=== PATIENT | female | born 1965 | race Caucasian/White ===

== ENCOUNTER 2019-10-21 07:44 | Outpatient (CLI) | payer BC, SELFPAY ==
[2019-10-21 08:06] LABS: Basophils Absolute Auto 0.02 K/mm3 (0.00-0.10); Basophils Percent Auto 0.4 % (0.0-1.0); Eosinophils Absolute Auto 0.09 K/mm3 (0.02-0.50); Eosinophils Percent Auto 1.7 % (1.0-6.0); Hematocrit 40.4 % (35.0-49.0); Hemoglobin 13.9 g/dL (12.0-15.0); Immature Granulocyte Absolute 0.01 K/mm3 (0.00-0.00); Immature Granulocyte Percent A 0.2 % (0.0-0.0); Lymphocytes Absolute Auto 0.94 K/mm3 (1.10-4.50); Lymphocytes Percent Auto 17.4 % (18.0-42.0); Mean Corpuscular HGB Conc 34.4 g/dL (32.0-36.0); Mean Corpuscular Volume 87.3 fL (78.0-102.0); Mean Platelet Volume 10.3 fl (9.2-11.8); Monocytes Absolute Auto 0.45 K/mm3 (0.10-0.90); Monocytes Percent Auto 8.3 % (2.0-11.0); Neutrophils Absolute Auto 3.9 K/mm3 (1.7-7.2); Platelet Count Result 204 K/mm3 (150-420); Red Blood Count 4.63 M/mm3 (4.20-5.40); Red Cell Distribution Width 13.2 % (11.6-14.4); White Blood Count 5.4 K/mm3 (4.8-10.8)
[2019-10-21 09:19] LABS: Alanine Aminotransferase 20 U/L (14-59); Albumin Level 3.8 g/dL (3.4-5.0); Alkaline Phosphatase 93 U/L (46-116); Anion Gap 18.2 mmol/L (7-16); Aspartate Amino Transferase 15 U/L (15-37); Bilirubin,Total 0.6 mg/dL (0.00-1.00); Blood Urea Nitrogen 19 mg/dL (7-18); Carbon Dioxide 27 mmol/L (21-32); Chloride 102 mmol/L (98-108); Cholesterol 190 mg/dL (0-200); Estimated Glomerular Filt Rate > 60; Glucose 106 mg/dL (70-99); HDL Direct 54 mg/dL (40-60); LDL Cholesterol Calculated 99 mg/dL (<130); Osmolality Calculated 300 mOsm/kg (285-295); Potassium 3.2 mmol/L (3.5-5.1); Sodium 144 mmol/L (136-145); Total Protein 7.1 g/dL (6.4-8.2); Triglycerides 184 mg/dL (0-150)
[2019-10-21 09:36] LABS: Calcium 9.1 mg/dL (8.5-10.1)
== END 2019-10-21 07:45 | disposition home or self-care (01) ==
LOC: CHSLAB 07:51
PROVIDERS: PCP Nurse Practitioner Family; Visit Provider Nurse Practitioner Family
DX: I10 Essential (primary) hypertension (principal); E78.5 Hyperlipidemia, unspecified
CPT/HCPCS: 36415; 80053; 80061; 85025

== ENCOUNTER 2020-03-26 08:21 | Outpatient (CLI) | payer BC, SELFPAY ==
--- NOTE | ~2020-03-26 | XR_ITS ---
XR elbow RT 2V DATE: 03/26/2020 09:00 INDICATION: Lateral elbow pain for 3 months. No injury. TECHNIQUE: 4 views COMPARISON: None FINDINGS: No fracture or dislocation or joint effusion. No periosteal reaction or bone destruction. Joint spaces are preserved. IMPRESSION: Negative Reviewed, dictated and finalized at location A. IMPRESSION: Negative
[2020-03-26 09:04] LABS: Anion Gap 10.8 mmol/L (7-16); Blood Urea Nitrogen 19 mg/dL (7-18); Calcium 8.8 mg/dL (8.5-10.1); Carbon Dioxide 32 mmol/L (21-32); Chloride 103 mmol/L (98-108); Estimated Glomerular Filt Rate 57; Glucose 110 mg/dL (70-99); Osmolality Calculated 297 mOsm/kg (285-295); Potassium 3.8 mmol/L (3.5-5.1); Sodium 142 mmol/L (136-145)
== END 2020-03-26 08:22 | disposition home or self-care (01) ==
LOC: CHSLAB 08:26
PROVIDERS: PCP Nurse Practitioner Family; Visit Provider Nurse Practitioner Family
DX: M79.601 Pain in right arm (principal); E87.6 Hypokalemia
CPT/HCPCS: 36415; 73070; 80048

== ENCOUNTER 2020-04-02 14:50 | Outpatient (RCR) | payer BC, SELFPAY ==
--- NOTE | 2020-04-02 15:22 | PTOPEVAL ---
Thank you for referring Rhys Palacio to [facility]. Please review, sign, date and return this plan of care PINKY. I agree with and certify that the following plan of care is medically necessary. Referring Physician Date Admitting Provider: Attending Provider: Marisela Perez NP Referring Provider: BENJAMÍN Outpatient Evaluation Start: 04/02/20 14:56 Freq: Status: Active Protocol: Document 04/02/20 14:56 JTF (Rec: 04/02/20 15:21 J [id number]) Therapy Assessment Status Assessment Status Assessment Status Evaluation Evaluation Information Problem Diagnosis R arm pain Onset 01/10/20 Additional Evaluation Detail quick dash = 47% functionally declined Subjective Information patient reports she has been Query Text:As Reported By Patient/ having pain in her R forearm Family for about 2 months. she reports she was painting and injured her R forearm. she reports she was stretching far and felt a pull in her arm. she reports she initially was healed with medications, but has since had a flare up of pain in the R forearm since her anti-inflamatories wore off. she reports it will hurt along the forearm and into the back of the R hand. she reports the pain will run from the forearm to between to the 2nd and 3rd finger. she reports it will feel like it stiffens up on her. Prior Level of Function Comments Additional Prior Level of Function prior to painting, no issues. Comments Pain Assessment Timing of Pain Assessment Timing of Pain Assessment Assessment Pain Scale Pain Scale Used Numeric (1 - 10) Self Report Pain Assessment Right Arm(s) Reported Pain Level 2 Pain Description Aching,Sharp,Stabbing Lowest Pain Intensity 0 Greatest Pain Intensity 8 Pain Score Pain Score 2: Self Report Upper Extremity Range of Motion Scapular/ Shoulder Range of Motion Bilateral Reason Not Measured WFL/Left,WFL/Right Shoulder Medial Rotation - Active reach to the lower thoracic Query Text:Reach Behind the Back spine Shoulder Lateral Rotation - Active reach to the upper thoracic Query Text:Reach Behind the Head spine Elbow/Forearm Range of Motion Right
== END 2020-04-28 09:55 | disposition home or self-care (01) ==
LOC: CHSPT 14:50
PROVIDERS: PCP Nurse Practitioner Family; Visit Provider Nurse Practitioner Family
DX: M79.601 Pain in right arm (principal)
CPT/HCPCS: 97014; 97110; 97140; 97161; G0283

== ENCOUNTER 2020-11-03 08:21 | Outpatient (CLI) | payer BC, SELFPAY ==
[2020-11-03 08:40] LABS: Basophils Absolute Auto 0.02 K/mm3 (0.00-0.10); Basophils Percent Auto 0.3 % (0.0-1.0); Eosinophils Absolute Auto 0.12 K/mm3 (0.02-0.50); Eosinophils Percent Auto 1.8 % (1.0-6.0); Hematocrit 42.2 % (35.0-49.0); Hemoglobin 14.1 g/dL (12.0-15.0); Immature Granulocyte Absolute 0.02 K/mm3 (0.00-0.00); Immature Granulocyte Percent A 0.3 % (0.0-0.0); Lymphocytes Absolute Auto 1.37 K/mm3 (1.10-4.50); Lymphocytes Percent Auto 20.8 % (18.0-42.0); Mean Corpuscular HGB Conc 33.4 g/dL (32.0-36.0); Mean Corpuscular Hemoglobin 29.4 pg (27.0-31.0); Mean Corpuscular Volume 87.9 fL (78.0-102.0); Mean Platelet Volume 10.2 fl (9.2-11.8); Monocytes Absolute Auto 0.52 K/mm3 (0.10-0.90); Monocytes Percent Auto 7.9 % (2.0-11.0); Neutrophils Absolute Auto 4.6 K/mm3 (1.7-7.2); Neutrophils Percent Auto 68.9 % (50.0-70.0); Platelet Count Result 246 K/mm3 (150-420); Red Cell Distribution Width 13.1 % (11.6-14.4); White Blood Count 6.6 K/mm3 (4.8-10.8)
[2020-11-03 09:29] LABS: Alanine Aminotransferase 23 U/L (14-59); Albumin Level 3.9 g/dL (3.4-5.0); Alkaline Phosphatase 84 U/L (46-116); Anion Gap 12 mmol/L (8-16); Aspartate Amino Transferase 12 U/L (15-37); Bilirubin,Total 0.5 mg/dL (0.00-1.00); Blood Urea Nitrogen 19 mg/dL (7-18); Calcium 9.3 mg/dL (8.5-10.1); Carbon Dioxide 29 mmol/L (21-32); Chloride 100 mmol/L (98-108); Cholesterol 194 mg/dL (0-200); Estimated Glomerular Filt Rate 55; Glucose 122 mg/dL (70-99); HDL Direct 50 mg/dL (40-60); LDL Cholesterol Calculated 108 mg/dL (<130); Osmolality Calculated 295 mOsm/kg (285-295); Potassium 3.4 mmol/L (3.5-5.1); Sodium 141 mmol/L (136-145); Total Protein 7.2 g/dL (6.4-8.2); Triglycerides 178 mg/dL (0-150)
[2020-11-03 13:04] LABS: Hemoglobin A1C 5.9 % (<5.7)
== END 2020-11-03 08:22 | disposition home or self-care (01) ==
PROVIDERS: PCP Nurse Practitioner Family; Visit Provider Nurse Practitioner Family
DX: E78.5 Hyperlipidemia, unspecified (principal); I10 Essential (primary) hypertension; R73.09 Other abnormal glucose
CPT/HCPCS: 36415; 80053; 80061; 83036; 85025

== ENCOUNTER 2022-03-23 07:36 | Outpatient (CLI) | payer BC, SELFPAY ==
[2022-03-23 07:50] LABS: Basophils Absolute Auto 0.04 K/mm3 (0.00-0.10); Basophils Percent Auto 0.7 % (0.0-1.0); Eosinophils Absolute Auto 0.15 K/mm3 (0.02-0.50); Eosinophils Percent Auto 2.6 % (1.0-6.0); Hemoglobin 13.4 g/dL (12.0-15.0); Immature Granulocyte Absolute 0.03 K/mm3 (0.00-0.00); Immature Granulocyte Percent A 0.5 % (0.0-0.0); Lymphocytes Absolute Auto 1.34 K/mm3 (1.10-4.50); Lymphocytes Percent Auto 23.3 % (18.0-42.0); Mean Corpuscular HGB Conc 32.7 g/dL (32.0-36.0); Mean Corpuscular Hemoglobin 29.4 pg (27.0-31.0); Mean Corpuscular Volume 89.9 fL (78.0-102.0); Mean Platelet Volume 10.5 fl (9.2-11.8); Monocytes Absolute Auto 0.51 K/mm3 (0.10-0.90); Monocytes Percent Auto 8.9 % (2.0-11.0); Neutrophils Absolute Auto 3.7 K/mm3 (1.7-7.2); Platelet Count Result 243 K/mm3 (150-420); Red Blood Count 4.56 M/mm3 (4.20-5.40); Red Cell Distribution Width 13.2 % (11.6-14.4); White Blood Count 5.8 K/mm3 (4.8-10.8)
[2022-03-23 08:03] LABS: Alanine Aminotransferase 20 U/L (14-59); Albumin Level 3.5 g/dL (3.4-5.0); Alkaline Phosphatase 86 U/L (46-116); Anion Gap 5 mmol/L (8-16); Aspartate Amino Transferase 14 U/L (15-37); Bilirubin,Total 0.4 mg/dL (0.00-1.00); Blood Urea Nitrogen 16 mg/dL (7-18); Calcium 8.6 mg/dL (8.5-10.1); Carbon Dioxide 31 mmol/L (21-32); Chloride 103 mmol/L (98-108); Cholesterol 181 mg/dL (0-200); Estimated Glomerular Filt Rate > 60; Glucose 122 mg/dL (70-99); HDL Direct 49 mg/dL (40-60); LDL Cholesterol Calculated 93 mg/dL (<130); Osmolality Calculated 290 mOsm/kg (285-295); Potassium 3.3 mmol/L (3.5-5.1); Sodium 139 mmol/L (136-145); Triglycerides 195 mg/dL (0-150)
== END 2022-03-23 07:37 | disposition home or self-care (01) ==
LOC: CHSLAB 07:39
PROVIDERS: PCP Nurse Practitioner Family; Visit Provider Nurse Practitioner Family
DX: E78.5 Hyperlipidemia, unspecified (principal); I10 Essential (primary) hypertension
CPT/HCPCS: 36415; 80053; 80061; 85025

== ENCOUNTER 2023-01-31 07:19 | Outpatient (CLI) | payer BC, SELFPAY ==
[2023-01-31 07:31] LABS: Appearance Urine Clear (Clear); Bilirubin Urine Negative (Negative); Blood Urine Negative (Negative); Color Urine Yellow (Yellow); Glucose Urine UA Negative (Negative); Ketones Urine Negative (Negative); Leukocyte Esterase Ur Negative LEU/UL (Negative); Nitrate Urine Negative (Negative); Protein Urine Negative (Negative); Specific Grav Ur 1.015 (1.010-1.020); Urobilinogen Urine 0.2 mg/dL (0.2-1.0)
[2023-01-31 07:36] LABS: Add Urine Microscopic? NO
== END 2023-01-31 07:20 | disposition home or self-care (01) ==
LOC: CHSLAB 07:22
PROVIDERS: PCP Nurse Practitioner Family; Visit Provider Nurse Practitioner Family
DX: R39.9 Unspecified symptoms and signs involving the genitourinary system (principal)
CPT/HCPCS: 81003

== ENCOUNTER 2023-05-09 07:03 | Outpatient (CLI) | payer BC, SELFPAY ==
[2023-05-09 07:15] LABS: Basophils Absolute Auto 0.04 K/mm3 (0.00-0.10); Basophils Percent Auto 0.6 % (0.0-1.0); Eosinophils Absolute Auto 0.15 K/mm3 (0.02-0.50); Eosinophils Percent Auto 2.4 % (1.0-6.0); Hematocrit 40.4 % (35.0-49.0); Hemoglobin 13.3 g/dL (12.0-15.0); Immature Granulocyte Absolute 0.03 K/mm3 (0.00-0.00); Immature Granulocyte Percent A 0.5 % (0.0-0.0); Lymphocytes Absolute Auto 1.51 K/mm3 (1.10-4.50); Mean Corpuscular HGB Conc 32.9 g/dL (32.0-36.0); Mean Corpuscular Hemoglobin 29.4 pg (27.0-31.0); Mean Corpuscular Volume 89.2 fL (78.0-102.0); Mean Platelet Volume 10.1 fl (9.2-11.8); Monocytes Percent Auto 7.9 % (2.0-11.0); Neutrophils Absolute Auto 4.1 K/mm3 (1.7-7.2); Neutrophils Percent Auto 64.6 % (50.0-70.0); Platelet Count Result 221 K/mm3 (150-420); Red Blood Count 4.53 M/mm3 (4.20-5.40); Red Cell Distribution Width 13.5 % (11.6-14.4); White Blood Count 6.3 K/mm3 (4.8-10.8)
[2023-05-09 08:11] LABS: Anion Gap 9 mmol/L (8-16); Carbon Dioxide 32 mmol/L (21-32); Chloride 102 mmol/L (98-108); Potassium 3.4 mmol/L (3.5-5.1); Sodium 143 mmol/L (136-145)
[2023-05-09 08:12] LABS: Alanine Aminotransferase 15 U/L (14-59); Albumin Level 3.7 g/dL (3.4-5.0); Alkaline Phosphatase 88 U/L (46-116); Aspartate Amino Transferase 14 U/L (15-37); Bilirubin,Total 0.4 mg/dL (0.00-1.00); Blood Urea Nitrogen 22 mg/dL (7-18); Calcium 9.5 mg/dL (8.5-10.1); Cholesterol 184 mg/dL (0-200); Estimated Glomerular Filt Rate 59; Glucose 110 mg/dL (70-99); HDL Direct 46 mg/dL (40-60); LDL Cholesterol Calculated 111 mg/dL (<130); Osmolality Calculated 300 mOsm/kg (285-295); Total Protein 6.9 g/dL (6.4-8.2); Triglycerides 137 mg/dL (0-150)
== END 2023-05-09 07:04 | disposition home or self-care (01) ==
LOC: CHSLAB 07:06
PROVIDERS: PCP Nurse Practitioner Family; Visit Provider Nurse Practitioner Family
DX: E78.5 Hyperlipidemia, unspecified (principal); I10 Essential (primary) hypertension
CPT/HCPCS: 36415; 80053; 80061; 85025

== ENCOUNTER 2023-10-27 09:32 | Outpatient (CLI) | payer BC, SELFPAY ==
--- NOTE | ~2023-10-27 | XR_ITS ---
Left wrist Technique: PA, oblique, lateral, and ulnar deviation views were obtained. Clinical History: Pain Findings: No acute fracture or dislocation is seen. Osseous alignment is anatomic. Joint spaces are p reserved. Soft tissues are unremarkable. Impression: Unremarkable left wrist radiographs. Reviewed, dictated and finalized at location . 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
--- NOTE | ~2023-10-27 | XR_ITS ---
Left Hand Technique: PA, oblique, and lateral views were obtained. Clinical History: Injury Findings: No acute fracture or dislocation is seen. Osseous alignment is anatomic. Joint spaces are p reserved. Soft tissues are unremarkable. Impression: Unremarkable left hand. Reviewed, dictated and finalized at location M. PUNCHER Impression: Unremarkable left hand.
== END 2023-10-27 09:33 | disposition home or self-care (01) ==
LOC: CHSIMG 09:36
PROVIDERS: PCP Nurse Practitioner Family; Visit Provider Nurse Practitioner Family
DX: S69.92XA Unspecified injury of left wrist, hand and finger(s), initial encounter (principal)
CPT/HCPCS: 73110; 73130

== ENCOUNTER 2023-11-18 08:54 | Outpatient (CLI) | payer BC, SELFPAY ==
--- NOTE | ~2023-11-18 | MR_ITS ---
EXAMINATION: MR wrist LT wo con DATE: 11/18/2023 13:02 INDICATION: Unspecified injury of left wrist and hand. TECHNIQUE: Magnetic resonance imaging (MRI) of the wrist was performed without intravenous contrast. Sequences performed include coronal T1-weighted FSE, coronal PD-weighted FS FSE, axial PD-weighted FS FSE, axial PD-weighted FSE, sagittal PD-weighted FSE, and sagittal PD-weighted FS FSE. COMPARISON: Left wrist and hand radiographs 10/27/2023 FINDINGS: Intrinsic ligaments: Scapholunate ligament and lunotriquetral ligament are normal. Triangular fibrocartilage complex (TFCC): There is a full-thickness tear of triangular fibrocartilage. Extensor wrist: The extensor tendons are normal. Flexor wrist: The flexor tendons are normal. Median nerve is normal. Guyon's canal: Ulnar nerve is normal. Bones/other: There is mild osteoarthritis of triscaphe joint and first carpometacarpal joint. IMPRESSION: 1. 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 2. Full-thickness tear of triangular fibrocartilage. Reviewed, dictated and finalized at location E. 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
== END 2023-11-18 08:55 | disposition home or self-care (01) ==
PROVIDERS: PCP Nurse Practitioner Family; Visit Provider Nurse Practitioner Family
DX: S69.92XA Unspecified injury of left wrist, hand and finger(s), initial encounter (principal); M19.032 Primary osteoarthritis, left wrist; S63.592A Other specified sprain of left wrist, initial encounter; M25.532 Pain in left wrist
CPT/HCPCS: 73221

== ENCOUNTER 2023-11-28 10:59 | Outpatient (RCR) | payer BC, SELFPAY ==
--- NOTE | 2023-12-01 16:55 | BUOTOPEVAL ---
Assessment and note entered by Dyana Leiva OT Evaluation Information Assessment Status Evaluation Diagnosis Unspecified injury of L wrist, hand and finger Onset 10/17/2023 Subjective Information The patient reports 0/10 pain at evaluation and 8/ 10 pain at worst. The patient has pain during any use of wrist, the patient has pain at all times but can perform ADLs/IADLs. 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 Pain is located at palmar side of hand at base of wrist. The patient has no sensation issues. The patient reports soreness in L shoulder during MMT. Reported Pain Level Pain Score 0: Self Report Assessment OT Clinical Summary The patient is a 58 year old female who was referred to outpatient OT due to L wrist TFCC tear resulting in pain and limited ability to perform daily tasks. 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 The patient now demonstrates moderate pain in L wrist, minimally impaired AROM and strength of wrist and forestry instructor/pinch strength that affect the patient's ability to perform ADLs and IADLs without pain. The patient requires skilled OT to address AROM and strength of L wrist, L forestry instructor strength and pain in order to return to OF. Plan of Care Interventions Therapeutic Exercise,Manual Therapy,Neuro Re- education,Therapeutic Activities,Hot Pack/Cold Pack,Electrical Stimulation,Sensory Integrative Techn,Self-Care/Home Management,Prosthetic Training,Ultrasound OT Services Indicated Yes Treatment Frequency and 2x/week for 10 visits. Duration These treatments will address the objective and functional deficits as defined above. The patient will be advanced safely and appropriately in order for the patient to progress towards his/her prior level of function. Additional exercises will be introduced and as well as a comprehensive home exercise program upon discharge, if needed, ?to ensure carryover of functional gains achieved in the clinic. This treatment plan has been reviewed and agreement upon by the patient.
--- NOTE | 2023-12-27 13:42 | OTOPDC ---
Assessment and note entered by Dyana Leiva, OT Evaluation Information Assessment Status Discharge Subjective Information The patient stated that she is able to do her ADLs without pain and does not have to think about her wrist anymore. The patient reported that she cleaned house all day yesterday with no issues. She reports that she does her exercises at home and is going to continue after discharge. 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 The patient demonstrates significant progress toward goals with no signs of pain during activity. She has improved on QuickDASH from 29.5% to 2.3% at the time of discharge. Due to the patient's good progress and understanding of HEP, the patient is discharged this date due to meeting goals. Plan of Care OT Services Indicated No
== END 2023-12-27 16:07 | disposition home or self-care (01) ==
LOC: CHSOT 10:59
PROVIDERS: Visit Provider Nurse Practitioner Family
DX: M25.532 Pain in left wrist (principal); S69.92XD Unspecified injury of left wrist, hand and finger(s), subsequent encounter
CPT/HCPCS: 97110; 97140; 97165; 97530

== ENCOUNTER 2024-06-10 09:37 | Outpatient (CLI) | payer BC, SELFPAY ==
--- NOTE | ~2024-06-10 | XR_ITS ---
XR foot RT min 3V Ordering provider: Marisela Perez NP History: . Lateral pain X 3 weeks/surgery 2018, ankle fx/surgery - 2008 . Comparison: July 02, 2013 FINDINGS: BONES: Old fracture in the base of the fifth metatarsal bone unchanged. No acute fracture or dislocat ion. Calcaneal spur. Postoperative changes in the distal fibula JOINT SPACES: Normal. No tarsal coalition. SOFT TISSUES: Normal. IMPRESSION: No acute osseous abnormality of the right foot. Of the fracture in the base of the fifth metatarsal bone. Reviewed, dictated and finalized at location A.
== END 2024-06-10 09:38 | disposition home or self-care (01) ==
PROVIDERS: PCP Nurse Practitioner Family; Visit Provider Nurse Practitioner Family
DX: M79.671 Pain in right foot (principal)
CPT/HCPCS: 73630

== ENCOUNTER 2024-07-19 10:12 | Outpatient (CLI) | payer BC, SELFPAY ==
[2024-07-19 10:49] LABS: Basophils Absolute Auto 0.03 K/mm3 (0.00-0.10); Basophils Percent Auto 0.5 % (0.0-1.0); Eosinophils Absolute Auto 0.15 K/mm3 (0.02-0.50); Eosinophils Percent Auto 2.7 % (1.0-6.0); Hemoglobin 14.2 g/dL (12.0-15.0); Immature Granulocyte Absolute 0.01 K/mm3 (0.00-0.00); Immature Granulocyte Percent A 0.2 % (0.0-0.0); Lymphocytes Absolute Auto 1.38 K/mm3 (1.10-4.50); Mean Corpuscular HGB Conc 33.8 g/dL (32-36); Mean Corpuscular Hemoglobin 29.9 pg (27.0-31.0); Mean Corpuscular Volume 88.4 fL (78.0-102.0); Monocytes Absolute Auto 0.42 K/mm3 (0.10-0.90); Monocytes Percent Auto 7.6 % (2.0-11.0); Neutrophils Absolute Auto 3.53 K/mm3 (1.70-7.20); Platelet Count Result 245 K/mm3 (150-420); Red Blood Count 4.75 M/mm3 (4.20-5.40); Red Cell Distribution Width 12.8 % (11.6-14.4); White Blood Count 5.5 K/mm3 (4.8-10.8)
[2024-07-19 11:02] LABS: Prothrombin Time 10.6 Seconds (9.50-12.1)
[2024-07-19 11:43] LABS: Alanine Aminotransferase 29 U/L (14-59); Albumin Level 3.7 g/dL (3.4-5.0); Alkaline Phosphatase 82 U/L (46-116); Anion Gap 11 mmol/L (4-12); Aspartate Amino Transferase 15 U/L (15-37); Bilirubin,Total 0.6 mg/dL (0.00-1.00); Blood Urea Nitrogen 17 mg/dL (7-18); Calcium 9.9 mg/dL (8.5-10.1); Carbon Dioxide 30 mmol/L (21-32); Chloride 103 mmol/L (98-108); Cholesterol 210 mg/dL (0-200); Estimated Glomerular Filt Rate 60; Glucose 109 mg/dL (70-99); HDL Direct 61 mg/dL (40-60); LDL Cholesterol Calculated 117 mg/dL (<130); Osmolality Calculated 300 mOsm/kg (285-295); Sodium 144 mmol/L (136-145); Total Protein 7.1 g/dL (6.4-8.2); Triglycerides 161 mg/dL (0-150)
== END 2024-07-19 10:13 | disposition home or self-care (01) ==
LOC: CHSLAB 10:14
PROVIDERS: PCP Nurse Practitioner Family; Visit Provider Nurse Practitioner Family
DX: E78.5 Hyperlipidemia, unspecified (principal); R04.0 Epistaxis; I10 Essential (primary) hypertension
CPT/HCPCS: 36415; 80053; 80061; 85025; 85610

== ENCOUNTER 2024-11-18 08:13 | Outpatient (CLI) | payer BC, SELFPAY ==
--- NOTE | ~2024-11-18 | XR_ITS ---
EXAMINATION: XR foot RT min 3V DATE: 11/18/2024 08:49 INDICATION: Right fifth metatarsal pain. TECHNIQUE: 4 views of right foot with weightbearing were obtained. COMPARISON: Right foot radiographs 06/10/2024, 07/02/2018 FINDINGS: Alignment is normal. There is a nondisplaced avulsion fracture of base of fifth metatarsal with callus formation. There is plate-screw fixation of distal fibula. There is mild osteoarthritis o f first metatarsophalangeal joint and some of the interphalangeal joints and midfoot joints. There is an enthesophyte at plantar aspect of calcaneal tuberosity. IMPRESSION: 1. Healing nondisplaced avulsion fracture of base of fifth metatarsal. 2. Mild polyarticular osteoarthritis. Reviewed, dictated and finalized at location B.
--- OUTSIDE RECORDS SUMMARY | 2024-11-18 08:29 | XMS_ITS | Clinical Summary ---
Author Organization [facility] Address [address] [place] [address] Care Team Providers Care Shank Sander Name Role Phone Marisela Perez [facility] Primary Care Provider [phone] Allergies No known active allergies Medications estrogens, conjugated, 0.3 MG tabletIndication s:hormone therapy Take 0.3 mg by mouth daily. Take daily for 21 days then do not take for 7 days. Active atenolol-chlorth alidone 50-25 MG TabIndications:I ncreased Blood Pressure Take 1 tablet by mouth daily. Active atorvastatin 20 MG tabletIndication s:Hypercholester olemia Take 20 mg by mouth daily. Active Multiple Vitamins-Mineral s (ONE-A-DAY WOMENS 50 PLUS OR)Indications:s upplement Take 1 tablet by mouth daily. Active calcium carb-cholecalcif terry 600-400 MG-UNIT Tab tabletIndication s:calcium 1200 + vitamin D3-supplement 1 tablet daily. Active Cholecalciferol (VITAMIN D3) 2000 units TabIndications:s upplement Take 1 tablet by mouth daily. Active fish oil 1000 MG Cap capsuleIndicatio ns:supplement Take 1,400 mg by mouth daily. Active Family History Relation Status Comments Father (Age 88) heart attack Mother (Age 82) heart diseaSE Social History Tobacco Use Types Packs/Day Years Used Date Smoking Tobacco: Never Smokeless Tobacco: Never Alcohol Use Standard Drinks/Week Comments Yes 0 (1 standard drink = 0.6 oz pur e alcohol) rare/socially Comments Unknown Sex and Gender Information Value Date Recorded Sex Assigned at Not on file Legal Sex Female 8:33 PM CDT Gender Identity Not on file Sexual Orientation Not on file Last Filed Vital Signs Vital Sign Reading Time Taken Comments Blood Pressure 95/81 10/04/2018 4:33 PM BEE BREEDER Pulse 56 10/04/2018 4:33 PM BEE BREEDER Temperature 16 C (60.8 F) 10/04/2018 4:00 PM BEE BREEDER Respiratory Rate 16 10/04/2018 4:33 PM BEE BREEDER Oxygen Saturation 94% 10/04/2018 4:33 PM BEE BREEDER Inhaled Oxygen Concentration - - Weight 97.1 kg (214 lb) 10/04/2018 10:58 AM BEE BREEDER Height 170.2 cm (5' 7 ) 10/04/2018 10:58 AM BEE BREEDER Body Mass Index 33.52 10/04/2018 10:58 AM BEE BREEDER Plan of Treatment Health Maintenance Due Date Last Done Comments Colorectal Cancer Screening Colonoscopy (10 Years) 1965 Annual Physical 1966 Hepatitis C 1981 DTaP, Tdap and Td Vaccines (1 - Tdap) 1982 Zoster Vaccines (1 of 2) 2013 COVID-19 Vaccine (3 - season) 2024 12/18/2020, 11/18/2020 Influenza Adult (#1) 2024 Mammogram Screening 07/05/2026 07/05/2024, 07/04/2023, 05/25/2022, Additional history exists RSV Immunization or 60+ Years (1 - 1-dose 75+ series) 2038 Meningococcal B Vaccine Aged Out No l onger eligible based on patient's age to complete this topic Meningococcal Vaccine Aged Out No trino zhou eligible based on patient's age to complete this topic Pneumococcal Vaccine: Pediatrics (0 to 5 Years) and At-Risk Patients (6 to 64 Years) Aged Out No longer eligible based on patient's age to complete this topic RSV Immunizations Under 20 Months Aged Out No longer eligible based on patient's age to complete this topic Procedures Procedure Name Priority Date/Time Associated Diagnosis Comments MG SCREENING W VANDA TRISH DIGI Routine 07/05/2024 2:34 PM CDT Visit for screening mammogram from Last 3 Months or Most Recently Relevant to Health Maintenance Results * MG SCREENING W VANDA TRISH DIGI (07/05/2024 2:34 PM CDT) Anatomical Region Laterality Modality Breast Bilateral Mammography 07/05/2024 4:57 PM CDT Impressions 07/05/2024 5:01 PM CDT ===== IMPRESSION: ===== 1. Stable mammographic appearance with no new findings to suggest malignancy in either breast. Assessment: ACR BI-RADS 2 - BENIGN FINDING(S) Recommendation: 1:Routine Screening Bilateral Comments: Ordered By: AMIRA BOONE Interpreted By: Christina Shay, 07/05/2024 4:57 PM Narrative 07/05/2024 5:01 PM CDT [facility] [place] [address] EXAMINATION: Digital bilateral screening mammogram with 3-D tomosynthesis EXAM DATE/TIME: 07/05/2024 2:15 PM REASON FOR EXAM: YEARLY EXAM Breast reduction in 2006. Benign right-sided biopsy in 2004 COMPARISON: 05/25/2022. 07/04/2023 Technique: Digital screening mammography of both breasts was performed in addition to 3-D Tomosynthesis technique. This study was read with the assistance of a computer-aided detection system. Tissue density: The breasts are heterogeneously dense, which may obscure small masses. Findings: There is no new focal asymmetry, dominant mass lesion, area of skin thickening, or cluster of suspicious appearing calcifications in either breast to suggest malignancy. us Amira Boone MD MAMMO Final Res ult from Last 3 Months or Most Recently Relevant to Health Maintenance Insurance [facility] [place] [employer] Care Teams Shank Sander Relationship Specialty Start Date End Date Marisela Perez FNP [address] [place] [address] PCP - General NURSE PRACTITIONER 04/14/20
--- OUTSIDE RECORDS SUMMARY | 2024-11-18 08:29 | XMS_ITS ---
Author Organization [facility] Address [address] [place], [place] [id number] Care Team Providers Care Concrete Rod Buster Name Role Phone Marisela Perez Unavailable Unavailable BENNIE ROJO Unavailable [phone] Allergies Allergen (clinical drug ingredient) Drug/Non Drug Allergy documented on EMR Reaction Allergy Type Onset Date Status Latex Latex Unknown Allergy Active REASON FOR VISIT *Foot Pain Medications Medication SIG (Take, Route, Fr equency, Duration) Notes Start Date End Date Status Lisinopril 10 MG 1 tablet Orally Once a day Active Atenolol 25 MG 1 tablet Orally Once a day Active Premarin 0.3 MG 1 tablet Orally Once a day Active Lipitor 10 MG 1 tablet Orally Once a day Active Chlorthalidone 25 MG 1 tablet in the mor desiree with food Orally Active Vital Signs Height 67 in 06/13/2024 Weight 213 lbs 06/13/2024 BMI 33.36 kg/m2 06/13/2024 Height-cm 170.18 cm 06/13/2024 Weight-kg 96.62 kg 06/13/2024 Encounters Encounter Location Date Provider Diagnosis [facility] [address] [place], [place] [id number] 06/13/2024 BENNIE ROJO Flat foot [pes planu s] (acquired), right foot M21.41 ; Localized edema R60.0 and Sprain of calcaneofibular ligament of right ankle, initial encounter S93.411A Assessments Encounter Date Diagnosis (ICD Code) Assessment Notes Treatment Notes Treatment Clinical Notes Section Notes 06/13/2024 Flat foot [pes planus] (acquired), right foot (ICD-10 - M21.41) Patient educated on etiology and treatment options for flexible flat foot deformity. Educated patient on how a flexible flat foot deformity can in turn result in pathology such as hammer toe, bunions, equinus, neuromas. Recommend use of custom foot inserts to help alleviate plantar peak pressures and accomodate for digital deformity to feet. 06/13/2024 Localized edema (ICD-10 - R60.0) 06/13/2024 Sprain of calcaneofibular ligament of right ankle, initial encounter (ICD-10 - S93.411A) Ankle Sprain: Discussed the treatment course for ankle sprain. Explained that ankle injuries may take a total of 6-12 weeks for recovery based on the severity of the sprain. Stressed the importance of rest, activity modification, and bracing. Plan Of Treatment Treatment Notes Assessment Notes Flat foot [pes planus] (acquired), right foot Patient educated on etiology and treatment options for flexible flat foot deformity. Educated patient on how a flexible flat foot deformity can in turn result in pathology such as hammer toe, bunions, equinus, neuromas. Recommend use of custom foot inserts to help alleviate plantar peak pressures and accomodate for digital deformity to feet. Sprain of calcaneofibular li gament of right ankle, initial encounter Ankle Sprain: Discussed the treatment course for ankle sprain. Explained that ankle injuries may take a total of 6-12 weeks for recovery based on the severity of the sprain. Stressed the importance of rest, activity modification, and bracing. Next Appt Details Follow Up: prn, Reason: Progress Notes * Vaibhav PALACIOSharanOB:[birth year] (59 yo F)Acc No.[id number]:06/13/2024 Progress Notes Patient: Rhys CHAHAL Provider: Ambar ROJO :1965 A ge:59 Y S ex:Female Date:06/13/2024 Address:[address], [facility] Subjective: * Chief Complaints: * 1 . *Foot Pain. * HPI: H PI: New Complaint P atient presents for a new patient consultation., Patient complains of an issue to right foot pain. Patient states that she went on a walk about a month ago and when she got done the foot was in pain. Patient states that she has had previous injuries to the foot. She got X-rays on Mondayand they showed an old fracture at the 5th metatarsal., MA: temi. * ROS: G eneral / Constitutional: Patient denies w eakness. R espiratory: Patient denies c hronic cough, shortness of breath, sputum production. C ardiovascular: Patient denies c hest pain, history of WI, irregular heartbeat. M usculoskeletal: Patient complains of f lat feet/ planus, joint pain. ? P eripheral Vascular: Patient denies b lanching of skin, cold extremities, decreased sensation in extremities. S kin: Patient denies f ungal nails, itching. N eurologic: Patient denies d izziness, gait abnormality, headache. * Medical History: H igh blood pressure. * Medications: T aking Chlorthalidone 25 MG Tablet 1 tablet in the morning with food Orally , Taking Atenolol 25 MG Tablet 1 tablet Orally Once a day , Taking Lisinopril 10 MG Tablet 1 tablet Orally Once a day , Taking Lipitor 10 MG Tablet 1 tablet Orally Once a day , Taking Premarin 0.3 MG Tablet 1 tablet Orally Once a day * Allergies: L atex: Allergy. Objective: * Vitals: S hoe Size: 11, Wt:213lbs, Wt-k.62 kg, Ht: 67 in, Ht-cm: 170.18 cm, BMI:33.36Index, Body Surface Area: 2.13. * Examination: P hysical Examination: V ascular: Dorsalis Pedis pulse noted at 2/4 right foot and 2/4 left foot and Posterior Tibial pulse noted at 2/4 right foot and 2/4 left foot, Capillary refill times noted to be less than three seconds x ten, Temperature gradient noted to be warm to cool to bilateral foot, pedal hair present to bilateral foot and no varicosities are noted Dermatologic: there are no open lesions, no signs of active clinical infection, no erythema noted, no ecchymoses, nails are at hygienic length during todays visit, interdigital spaces clean dry and intact Neurology: protective sensation intact to light touch bilateral digits one through five, vibratory sensation intact to first metatarsophalangeal joint bilaterally Musculoskeletal: pain to palpation medial calcaneal tubercle right foot, pain along medial band of plantar fascia right foot, ankle joint range of motion 0 degree with knee extended bilateral side, arch height 2/5 NWB bilateral 1/5 WB, no calf pain noted b/l, too many toes signs noted on weight bearing exam. Assessment: * Assessment: 1. F lat foot [pes planus] (acquired), right foot - M21.41 (Primary) 2 . L ocalized edema - R60.0 3 . S prain of calcaneofibular ligament of right ankle, initial encounter - S93.411A Plan: * Treatment: 2. S prain of calcaneofibular ligament of right ankle, initial encounter Notes: Ankle Sprain: Discussed the treatment course for ankle sprain. Explained that ankle injuries may take a total of 6-12 weeks for recovery based on the severity of the sprain. Stressed the importance of rest, activity modification, and bracing. * Follow Up: p rn * Billing Information: * Visit Code: 04384 Office Visit, New Pt., Level 3. * Procedure Codes: * Sign off status: Completed true * Provider: Ambar ROJO Date: Generated for Tee martinez/Saleem/Rodrigo on: 0 11/18/2024 08:29 AM CDT History and Physical Notes * HPI (History of Present Illness) Category Sub-Category Detail Notes Category Not es HPI New Complaint Patient presents for a new patient consultation., Patient complains of an issue to right foot pain. Patient states that she went on a walk about a month ago and when she got done the foot was in pain. Patient states that she has had previous injuries to the foot. She got X-rays on Mondayand they showed an old fracture at the 5th metatarsal., MA: [facility] Examination Category Sub-Category Detail Notes Category Not es Physical Examination Vascular: Dorsalis Pedis pulse noted at 2/4 right foot and 2/4 left foot and Posterior Tibial pulse noted at 2/4 right foot and 2/4 left foot, Capillary refill times noted to be less than three seconds x ten, Temperature gradient noted to be warm to cool to bilateral foot, pedal hair present to bilateral foot and no varicosities are noted Dermatologic: there are no open lesions, no signs of active clinical infection, no erythema noted, no ecchymoses, nails are at hygienic length during todays visit, interdigital spaces clean dry and intact Neurology: protective sensation intact to light touch bilateral digits one through five, vibratory sensation intact to first metatarsophalangeal joint bilaterally Musculoskeletal: pain to palpation medial calcaneal tubercle right foot, pain along medial band of plantar fascia right foot, ankle joint range of motion 0 degree with knee extended bilateral side, arch height 2/5 NWB bilateral 1/5 WB, no calf pain noted b/l, too many toes signs noted on weight bearing exam
--- OUTSIDE RECORDS SUMMARY | 2024-11-18 08:29 | XMS_ITS | Patient Health Record ---
Author Organization [facility] Address [address] [place], [place] [address] Care Team Providers Care Siding Mechanic Name Role Phone Marisela Perez Unavailable Unavailable BENNIE ROJO Unavailable [phone] Allergies Allergen (clinical drug ingredient) Drug/Non Drug Allergy documented on EMR Reaction Allergy Type Onset Date Status Latex Latex Unknown Allergy Active Reason For Referral No Information Medications Medication SIG (Take, Route, Fr equency, [...] desiree with food Orally Active Vital Signs Height-cm 170.18 cm 06/13/2024 Weight-kg 96.62 kg 06/13/2024 Height 67 in 06/13/2024 Weight 213 lbs 06/13/2024 BMI 33.36 kg/m2 06/13/2024 Encounters Encounter Location Date Provider Diagnosis [facility] [address] [place], [place] [id number] 06/13/2024 BENNIE ROJO Flat foot [pes planu [...] activity modification, and bracing. Plan Of Treatment No Information Insurance Providers Payer Name Payer Address Payer Phone Subscriber Number Group Number Insured Name Patient Relationship to Insured Coverage Start Date Coverage End Date [facility]) ATTN CLAIMS [address] [place] [address] [id number] Rhys Palacio Self - patient is the insured 9 [facility] ([facility]) ATTN CLAIMS [address] [place] [address] [id number] Rhys Palacio Self - patient is the insured Medical (General) History Medical History History ICD Code high blood pressure
== END 2024-11-18 08:14 | disposition home or self-care (01) ==
LOC: CHSIMG 08:15
PROVIDERS: PCP Nurse Practitioner Family; Visit Provider Orthopaedic Surgery
DX: M79.671 Pain in right foot (principal); S92.354D Nondisplaced fracture of fifth metatarsal bone, right foot, subsequent encounter for fracture with routine healing; M19.071 Primary osteoarthritis, right ankle and foot
CPT/HCPCS: 73630

== ENCOUNTER 2024-11-20 08:05 | Outpatient (RCR) | payer BC, SELFPAY ==
--- NOTE | 2024-11-20 09:01 | OPREHPOC ---
Outpatient Therapy Plan of Care This is a Multidisciplinary Plan of Care that may contain components documented by all disciplines (PT, OT, and ST.) PT Problem 1 PT Problem #1 Knowledge Deficit PT Goal 1 Goal / Goal Update Independent with HEP Target Visit 4 PT Problem 2 PT Problem #2 Pain PT Goal 1 Goal / Goal Update Pt to report 0/10 pain in the R ankle at rest. Pt to report no more than 4/10 pain in the R ankle when walking. Target Visit 8 PT Problem 3 PT Problem #3 Impaired Range of Motion PT Goal 1 Goal / Goal Update Pt to reach 20 degrees of active R ankle dorsiflexion. Target Visit 8 PT Problem 4 PT Problem #4 Impaired Functional Mobility PT Goal 1 Goal / Goal Update Pt to report no more than 5% disability on LEFS questionnaire. Pt to be able to stand and walk for more than 20 minutes without R ankle pain. Target Visit 8
--- NOTE | 2024-11-20 09:01 | PTOPEVAL1 ---
Assessment and note entered by Hanh Zhou, PT Evaluation Information Assessment Status Evaluation Diagnosis R peroneal tendinitis ICD-10 Condition Codes (PT) Pain in right ankle and joints of right foot M25. 571 Other ICD-10 Condition Codes ( M76.71 PT) Onset 05/12/25 Subjective Information Pt reports she's had two surgeries on her R ankle/ foot, the first in 2008 and the second in 2017. The first surgery was for fixation of a spiral fracture and the second one was to remove an avulsion from a 5th MT fracture. She reports she has a lot of scar tissue on the lateral side of her R foot as a result of these surgeries. She also notes occasional numbness into her pinky toe. She states she got a cortisone shot on Monday and that her pain is way better than it was. Prior to getting the shot, bearing any weight on the foot caused nearly 10/10 pain. Yesterday she was able to go outside and walk in her yard. Recent x-rays are clear for any new fractures. Reported Pain Level Pain Score 2: Self Report Assessment PT Clinical Summary Mrs. Palacio is a 59 yo female presenting to physical therapy with complaints of R foot/ankle pain. She demonstrates reduced R ankle AROM grossly compared to her L ankle due to her history of surgical fixation due to previous fractures, and she has palpable scar tissue along her incisions as well as occasional numbness into her pinky toe. Her pain limits her ability to walk on the foot. She will benefit from skilled PT intervention to improve on these deficits and return to prior level of function. Plan of Care Interventions Electrical Stimulation,Gait Training,Hot Pack/Cold Pack,Intermittent Compression Pump,Manual Therapy ,Neuro Re-education,Patient/Caregiver Education, Therapeutic Activities,Therapeutic Exercise,Self- Care/Home Management PT Services Indicated Yes Treatment Frequency and 2x/week for 8 visits Duration These treatments will address the objective and functional deficits as defined above. The patient will be advanced safely and appropriately in order for the patient to progress towards his/her prior level of function. Additional exercises will be introduced and as well as a comprehensive home exercise program upon discharge, if needed, ?to ensure carryover of functional gains achieved in the clinic. This treatment plan has been reviewed and agreement upon by the patient.
--- NOTE | 2024-12-13 08:36 | OPREHPOC ---
Outpatient Therapy Plan of Care This is a Multidisciplinary Plan of Care that may contain components documented by all disciplines (PT, OT, and ST.) PT Problem 1 PT Problem #1 Knowledge Deficit PT Goal 1 Goal / Goal Update Independent with HEP Target Visit 4 Progress Met PT Problem 2 PT Problem #2 Pain PT Goal 1 Goal / Goal Update Pt to report 0/10 pain in the R ankle at rest. Pt to report no more than 4/10 pain in the R ankle when walking. Target Visit 8 Progress Met PT Problem 3 PT Problem #3 Impaired Range of Motion PT Goal 1 Goal / Goal Update Pt to reach 20 degrees of active R ankle dorsiflexion. Target Visit 8 Progress Met PT Problem 4 PT Problem #4 Impaired Functional Mobility PT Goal 1 Goal / Goal Update Pt to report no more than 5% disability on LEFS questionnaire. Pt to be able to stand and walk for more than 20 minutes without R ankle pain. met Target Visit 8 Progress Partially Met
--- NOTE | 2024-12-13 08:36 | PTOPDC ---
Assessment and note entered by JT File, PT Evaluation Information Assessment Status Discharge Diagnosis R peroneal tendinitis ICD-10 Condition Codes (PT) Pain in right ankle and joints of right foot M25. 571 Other ICD-10 Condition Codes ( M76.71 PT) Onset 05/12/25 Subjective Information patient reports she really has no issues in the R foot/ankle. she reports she has really felt better since the injection. she reports she has no pain at rest, and no pain with walking. Reported Pain Level Pain Score 0: Self Report Assessment PT Clinical Summary mrs. walter presents to skilled PT for her 8th skilled PT visit. she displays no pain at rest or with activity, and achievement of all goals. she will be DC'd from skilled PT today, and continue with HEP independent at home. Plan of Care PT Services Indicated Yes
== END 2024-12-13 09:30 | disposition home or self-care (01) ==
LOC: CHSPT 08:05
PROVIDERS: Visit Provider Orthopaedic Surgery
DX: M76.71 Peroneal tendinitis, right leg (principal); M79.671 Pain in right foot
CPT/HCPCS: 97110; 97112; 97140; 97161; 97530